=== PATIENT | male | born 1945 | race Caucasian/White ===

== ENCOUNTER → 2016-10-05 | Outpatient (CLI) | payer MEDICARE, OTHER ==
[~2016-10-05] MED LIST: ATOR20TA
--- NOTE | 2016-10-05 15:52 | Diagnostic Imaging Report ---
INDICATION: Low back pain. COMPARISON: None available. TECHNIQUE: Five views of the lumbar spine. FINDINGS: Trace degenerative anterolisthesis of L5 on S1 (measuring less than 2 mm). Remainder of the lumbar spine has normal alignment. No compression deformity. Diffuse degenerative disc disease with mild disc space height loss in the upper lumbar spine. Moderate hypertrophic facet disease in the lower lumbar spine is greater on the right. No spondylolysis. SI joints are symmetric. Partially imaged gamma nail fixation of proximal right femur. Atherosclerotic vascular calcifications. IMPRESSION: 1. [id number] lumbar spondylosis. Dictated by: Dictated on workstation # [id number]
== END ==
LOC: RAD 11:42
PROVIDERS: ATTEND Chiropractor
DX: M54.5 Low back pain (principal); M47.896 Other spondylosis, lumbar region
CPT/HCPCS: 72110

== ENCOUNTER → 2016-10-26 | Outpatient (CLI) | payer MEDICARE, OTHER ==
--- NOTE | 2016-10-26 18:12 | Diagnostic Imaging Report ---
INDICATION: Thoracic back pain. TECHNIQUE: Multiplanar and multisequence acquisitions were acquired through the thoracic spine without the use of gadolinium. FINDINGS: There are degenerative changes in the lower cervical spine. There is a mild subacute to chronic compression fracture involving the superior endplate of T6. 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 The remaining thoracic vertebral body heights are well maintained. The visualized portions of the spinal cord are normal in signal intensity and morphology. Conus medullaris is seen at L1 and is normal in appearance. There is no focal disc extrusion or high-grade spinal stenosis. The subarachnoid space both anterior and posterior to the cord is well maintained throughout. There are no other focal soft tissue abnormalities. IMPRESSION: 1. Subacute or likely chronic mild compression fracture involving the superior endplate of T6. 2. 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 3. Otherwise, mild thoracic spondylosis without acute fracture, focal disc extrusion or high-grade spinal stenosis. Dictated by: Dictated on workstation # [id number]
== END ==
LOC: RAD 15:54
PROVIDERS: ATTEND Family Medicine
DX: M54.6 Pain in thoracic spine (principal)
CPT/HCPCS: 72146